=== PATIENT | female | born 1980 | race Caucasian/White ===

== ENCOUNTER 2024-12-23 21:58 | Inpatient (IN) | payer OTHER ==
[~2024-12-23] VITALS: Ht 165.1 cm; Wt 115.3 kg
[2024-12-23 22:27] LABS: MEAN PLATELET VOLUME 7.5 FL (7.4-10.4); RED CELL DISTRIBUTION WIDTH 12.2 % (11.5-14.5)
[2024-12-23 22:44] LABS: CREATININE 0.81 MG/DL (0.40-0.90); TOTAL CARBON DIOXIDE 31.7 MMOL/L (24-32); eCRCL 80 ML/MIN; eGFR 77 ML/MIN
--- NOTE | 2024-12-23 22:55 | Physician Documentation ---
History of Present Illness ~ Chief Complaint: Abdominal Pain w/vomiting Stated Complaint: ABD PAIN Time Seen by MD: 22:55 HPI Patient presents to the emergency room with epigastric pain onset 1 hour prior to arrival. History of ulcers. She reports compliance with her Protonix. Positive nausea and vomiting. No diarrhea no fevers. She is on Zepbound. Denies history of abdominal surgeries. Medication Reconciliation Allergies: Coded Allergies: No Known Allergies (Unverified , 12/23/24) Scheduled Pantoprazole Sodium (Protonix), 1 TAB PO DAILY, (Reported) Sertraline HCl (Sertraline HCl), 1 TAB PO DAILY, (Reported) Review of Systems ROS All review of systems negative except as per HPI Physical Exam Vital Signs: Temperature: 97.6, Heart Rate: 70, Respiratory Rate: 16, BP: 142/77, Pulse Oximetry: 98, Weight: 115.300 Oxygen Flow Rate: 0 Physical Exam General: Patient is awake, alert, oriented x4 in no acute distress Head: Normocephalic and atraumatic. Eyes: Conjunctival normal. EOMI. PERRL. ENT: Mucous membranes moist. Neck: Supple, trachea is midline. Chest: Clear to auscultation bilaterally without rales, rhonchi, or wheezes. There is no accessory muscle use or retractions. Cardiac: RRR without murmurs, gallops, or rubs. Abd: Soft, nondistended, epigastric tenderness to palpation without peritonitis Progress Results/Orders Results/Orders Orders - LG GRUBER MD Abdomen,Single View(Kub) (12/23/24 23:47) Ultrasound Of Abdomen (12/24/24 00:00) Page Hospitalist (12/24/24 00:41) Fill Out Med Reconciliation (12/24/24 00:41) Completed Orders - LG GRUBER MD Hcg, Ur Ql (12/23/24 22:09) Cbc/Diff (12/23/24 22:09) Lipase (12/23/24 22:09) CMP (12/23/24 22:09) Ondansetron Disint. Tablet (Zofran Odt T (12/23/24 23:00) Mag & Alum Hydrox/Simeth Susp (Maalox Or (12/23/24 23:00) Lidocaine 2% Viscous (Xylocaine 2% Visco (12/23/24 23:00) Abdomen,Single View(Kub) (12/23/24 23:47) Ua W/Microscopic, Cult If Ind (12/23/24 22:09) Prochlorperazine Tablet (Compazine Table (12/24/24 00:05) Ultrasound Of Abdomen (12/24/24 00:00) Morphine 4mg/Ml Inj. (Morphine Inj.) (12/24/24 00:35) Medications Received in ER Medications (Trade) Dose Ordered Sig/Yash Route PRN Reason Start Time Stop Time Status Last Admin Dose Admin (Zofran ODT tablet) 8 mg ONCE ONCE PO 12/23/24 23:00 12/23/24 23:01 DC 12/23/24 23:09 8 MG (Maalox oral suspension) 30 ml ONCE ONCE PO 12/23/24 23:00 12/23/24 23:01 DC 12/23/24 23:08 30 ML (Xylocaine 2% Viscous 15mL cup) 15 ml ONCE ONCE MM 12/23/24 23:00 12/23/24 23:01 DC 12/23/24 23:08 15 ML (Compazine tablet) 10 mg ONCE ONCE PO 12/24/24 00:05 12/24/24 00:06 DC 12/24/24 00:09 10 MG (morphine inj.) 4 mg ONCE ONCE IV 12/24/24 00:35 12/24/24 00:36 DC 12/24/24 00:49 4 MG Vital Signs 12/23/24 12/23/24 12/24/24 12/24/24 22:06 23:13 00:49 01:01 Temp 97.6 Pulse 70 68 Resp 16 16 26 16 B/P (MAP) 142/77 119/80 (93) Pulse Ox 98 95 O2 Flow Rate 0 0 Laboratory Tests Test 12/23/24 22:09 12/23/24 22:17 Urine Specimen Description Cln catch midstream Urine Color Yellow Urine Clarity Slightly cloudy Urine pH 6.0 Urine Specific [place] 1.025 Urine Protein Negative Urine Glucose (UA) Negative Urine Ketones Negative Urine Occult Blood Negative Urine Nitrite Negative Urine Bilirubin Negative Urine Urobilinogen 0.2 Urine Leukocyte Esterase Negative Urine RBC 3-10 Urine WBC 0-4 Urine Squamous Epithelial Cells Many Urine Amorphous Urates 1+ Urine Bacteria Few Urine Mucus Few Urine Culture Indicated Not ind Volume Urine Centrifuged 10 ml Urine HCG, Qualitative Negative Urine Comment White Blood Count 8.3 Red Blood Count 4.61 Hemoglobin 13.6 Hematocrit 39.3 Mean Corpuscular Volume 85.4 Mean Corpuscular Hemoglobin 29.6 Mean Corpuscular Hemoglobin Concent 34.7 Red Cell Distribution Width 12.2 Platelet Count 268 Mean Platelet Volume 7.5 Neutrophils (%) (Auto) 46.3 Lymphocytes (%) (Auto) 45.2 Monocytes (%) (Auto) 6.4 Eosinophils (%) (Auto) 1.4 Basophils (%) (Auto) 0.7 Neutrophils # (Auto) 3.8 Lymphocytes # (Auto) 3.7 Monocytes # (Auto) 0.5 Eosinophils # (Auto) 0.1 Basophils # (Auto) 0.1 CBC Comment Sodium Level 141 Potassium Level 3.9 Chloride Level 104 Carbon Dioxide Level 31.7 Anion Gap 5 L Blood Urea Nitrogen 18 Creatinine 0.81 Estimated GFR/1.73 m2 77 BUN/Creatinine Ratio 22.2 H Glucose Level 108 H Calcium Level 8.9 Total Bilirubin 0.2 Aspartate Amino Transf (AST/SGOT) 20 Alanine Aminotransferase (ALT/SGPT) 23 Alkaline Phosphatase 65 Total Protein 7.5 Albumin 3.4 Globulin 4.1 Albumin/Globulin Ratio 0.8 L Lipase 54 Chemistry Comments Medical Decision Making Findings Patient presents to the emergency room with epigastric pain as per HPI. Differentials include but were not limited to gastritis cholecystitis pancreatitis diverticulitis small-bowel obstruction therefore emergent labs ordered. Ultrasound is positive for gallbladder stone stuck in the neck of the gallbladder I do believe this is causing her pain. Patient was significant pain in his requiring IV pain medications. She is not a good candidate for outpatient management. We will admit for definitive management. Departure Admitted to Inpatient Unit: yes, to hospitalist Impression: Primary Impression: Cholelithiasis Additional Impression: Intractable pain Condition: Guarded Referrals: NO PRIMARY CARE PROVIDER (PCP) Signature Scribe Signature: No scribe Attestation: The note accurately reflects work and decisions made by me.Lg Gruber MD 12/24/24 01:14 LG GRUBER MD Dec 23, 2024 22:55
[2024-12-23] MEDS: LIDOcaine 2% Viscous 15ml cup MM ONE (23:08)
[2024-12-23] MEDS: mag hydrox/Alum hydrox/simeth 30ml oral suspension PO ONE (23:08)
[2024-12-23] MEDS: ondansetron 4mg rapidly disintigrating tab PO ONE (23:09)
[2024-12-23 23:39] LABS: LEUKOCYTE ESTERASE ,URINE NEGATIVE (Neg); NITRITES, URINE NEGATIVE (Neg); OCCULT BLOOD,URINE NEGATIVE (Neg)
[2024-12-23 23:45] LABS: URINE HCG NEGATIVE (NEG)
[2024-12-23 23:49] LABS: UA COLLECTION TYPE CLN CATCH MIDSTREAM
[2024-12-23 23:50] LABS: AMORPHOUS URATES 1+; MUCUS STRANDS FEW /LPF (Neg); SQUAMOUS EPITHELIAL CELL,UR MANY /LPF (FEW)
[2024-12-24] VITALS (17 sets, daily range): BP systolic 97–143; BP diastolic 57–94; PULSE 60–90; RESP 14–24; TEMP 97.7–99; O2SAT 93–100
--- NOTE | 2024-12-24 00:09 | RADIOLOGY REPORT ---
Exam: DI ABDOMEN,SINGLE VIEW(KUB) Indication: suspected obstruction Comparison: None Technique: 3 radiographic views of the abdomen. FINDINGS/IMPRESSION: Suboptimal assessment due to overlying soft tissue attenuation. Nonspecific bowel gas pattern. No free air. The osseous structures are unremarkable.
[2024-12-24] MEDS: morphine 4 MG/ML inj SYRINge IV ONE ×2 (00:49→01:36)
--- NOTE | 2024-12-24 01:01 | RADIOLOGY REPORT ---
EXAM: US ULTRASOUND OF ABDOMEN HISTORY: suspected cholecystitis COMPARISON: DI ABDOMEN,SINGLE VIEW(KUB) on DOS: 12/23/24 TECHNIQUE: Real-time grayscale and color flow images of the abdomen were obtained. FINDINGS: Suboptimal evaluation. GALLBLADDER: There is cholelithiasis. No gallbladder wall edema or pericholecystic fluid. Gallbladder wall thickness is 2 mm. A sonographic henriquez's sign is present. COMMON BILE DUCT: 5 mm in caliber. OTHER: None. IMPRESSION: 1. Cholelithiasis with a sonographic henriquez sign. No gallbladder wall thickening. Acute cholecystitis cannot be excluded in the appropriate clinical setting.
[2024-12-24] MEDS ORDERED: PANT20TA18 PO (01:08)
[2024-12-24] MEDS ORDERED: SERT-434 PO (01:08)
[2024-12-24] MEDS ORDERED: piperacillin/tazo 4.5gm/100ml 100 ML IV SCH (01:15)
[2024-12-24] MEDS ORDERED: potassium Cl 20 mEq SR tablet PO PRN ×2 (01:30)
[2024-12-24] MEDS ORDERED: magnesium sulf-water 4G/100mL 100 ML IV PRN (01:30)
[2024-12-24] MEDS ORDERED: potassium Cl 40MEQ/1/2NS 520ml 520 ML IV PRN (01:30)
[2024-12-24] MEDS ORDERED: magnesium hydroxide 30ml (MOM) UD suspension PO PRN (01:30)
[2024-12-24] MEDS ORDERED: ondansetron/PF 4mg/2ml inj IV PRN ×2 (01:30→20:00)
[2024-12-24] MEDS ORDERED: HYDROmorphone inj. 0.5 MG/0.5 ML DISP.SYRIN IV PRN ×2 (01:30→20:15)
[2024-12-24] MEDS ORDERED: magnesium sulf-water 2g/50mL 50 ML IV PRN (01:30)
[2024-12-24] MEDS ORDERED: magnesium Cl slow-release 64mg tablet PO PRN (01:30)
[2024-12-24] MEDS: metoclopramide 5 mg/ml inj IV ONE (01:45)
[2024-12-24] MEDS: piperacillin/tazobactam inj. 3.375 GM in NS 50ml IV ONE (01:45)
[2024-12-24] MEDS: normal saline 1000ml 1,000 ML IV SCH (01:45)
--- NOTE | 2024-12-24 01:54 | HISTORY AND PHYSICAL-Residence ---
History & Physical Providers to CC Resident Creating Document: AMINATAUTEROBSON ~ History of Present Illness Reason for Admit\Complaint: Abdominal pain History of Present Illness 44 years old female with history of obesity on Zepbound, and peptic ulcer presented to the ED due to severe abdominal pain. Pain located on the upper abdomen, and started around 8:00 p.m. at night 2 hours after she ate lunch. Severity of the pain 10/10, non positional, not radiated, exacerbated by deep breathing. Patient did not eat anything after pain and does not know any food relation. She also reported 2 times nausea/vomiting containing food nonbloody. Denied any constipation, diarrhea any changing in urinary habits. Denied any sick content. She denied any similar symptoms before, she reported I do not remember abdominal pain at this severity by probably I have sometimes abdominal pain. Allergies: Coded Allergies: No Known Allergies (Unverified , 12/23/24) Home Medications Home Medications Active Reported Sertraline HCl 100 Mg Tablet 1 Tab PO DAILY 30 Days Protonix (Pantoprazole Sodium) 20 Mg Tablet.dr 1 Tab PO DAILY 30 Days Past Medical History Past Medical History Peptic ulcer in 2009 Depression Obesity on Zepbound(compound form) for more than one year Past Surgical History Surgical History Comment Tonsillectomy Family History Family History: FH: gallbladder disease (Father, gangrene gallbladder) Past Social History Smoking: Cigarettes Alcohol Use: Occasionally (Last drink was last week) Drug Use: Marijuana, Cocaine (She used to smoke cocaine last one was one year ago), Other Lives with: Family ROS ROS Constitutional: No fever, dizziness, weakness. no change in appetite/weight HEENT: No blurring of the vision, No sore throat, epistaxis, tinnitus Cardiovascular: no chest pain/discomfort, palpitations, no syncope. No pedal edema Respiratory: No sob, cough,, hemoptysis Gastrointestinal: As HPI Genitourinary: No frquency, urgency, incontinence, nocturia. No dysuria, hematuria Musculoskeletal: No arthralgia, myalgia Endocrine: No polydipsia, polyuria. No heat or cold intolerance Neurologic: No headache, vertigo. No weakness, no numbness or tingling of extremities Psychiatric: No hallucinations/delusions, no anhedonia, no suicidal ideation\ Hematologic: No bleeding or bruises Exam Vitals: Vital Signs Date Time Temp Pulse Resp B/P (MAP) Pulse Ox O2 Delivery O2 Flow Rate FiO2 12/24/24 01:36 20 12/24/24 01:01 68 119/80 (93) 95 0 12/23/24 22:06 97.6 General: General: Awake and Alert, mild distress. HEENT: Conjunctiva pink, Sclera clear, Mucus Membranes dry Neck: Supple without masses and tenderness. Resp: Lungs clear to auscultation bilaterally. Heart: Regular Rate and rhythm, normal S1 and S2 Abdomen: Soft, nondistended, positive Collazo sign, tenderness on right upper quadrant Extremities: No cyanosis,clubbing or edema. Skin: Warm and Dry. Neurological: Speech is clear, alert, and oriented x 4, no gross neurological deficits Diagnostic Data Last Recorded Lab Results: 12/23/24221612/23/242216 Diagnostic Data: Laboratory Tests Test 12/23/24 22:17 Coagulation Comments Advance Care Planning Advanced Care plannin - 30 Minutes Additional Plan 44 years old female with history of obesity, depression, presented to the ED due to abdominal pain Abdominal pain Cholelithiasis Suspected acute cholecystitis no fever Normal lipase, normal WBC, normal liver function normal alkaline phosphatase and normal bilirubin, pending lactic acid Suspected acute cholecystitis History of possible peptic ulcer in 2009, Abdominal x-ray showed:Suboptimal assessment due to overlying soft tissue attenuation. Nonspecific bowel gas pattern. No free air. The osseous structures are unremarkable. Ultrasound showed: Cholelithiasis with a sonographic collazo sign. No gallbladder wall thickening. Acute cholecystitis cannot be excluded in the appropriate clinical setting. Received Zosyn in the ED We will continue IV fluid will order HIDA scan Consulted surgery Dr Braxton Obesity On Zepbound we will hold the medication for now Current smoker, cigarettes and marijuana Denied any methamphetamine or cocaine use recently Urine tox is pending Patient was consulted regarding the adverse effect of his smoking including cardiovascular disease cancer respiratory disease and other patient potential harms Depression Continue home medication after reconciliation Code Status: Full DVT prophylaxis: SCDs Analgesia/sedation: Dilaudid Line/tube: Peripheral GI prophylaxis: Protonix Nutrition: NPO Prognosis: Guarded Disposition: Continue monitoring patient in ortho floor with telemetry Ute Muniz MD Internal Medicine Resident Date of Service: Dec 24, 2024 Billing Provider: BRAUILO TORRES MD, ELAHE, RES Dec 24, 2024 01:54
[2024-12-24 01:59] LABS: APTT 25 SECONDS (22-32); INR 1.0 INR
[2024-12-24 02:20] LABS: CHOL/HDL RATIO 6.4 (0.00-4.99); LDL CHOLESTEROL 144 MG/DL (50-100)
[2024-12-24] MEDS: normal saline 1000ml 1,000 ML IVB ONE (02:23)
[2024-12-24 02:52] LABS: URINE AMPHETAMINE SCREEN NEGATIVE (Neg); URINE BARBITUATE SCREEN NEGATIVE (Neg); URINE BENZODIAZEPINES SCREEN NEGATIVE (Neg); URINE CANNABINOID SCREEN NEGATIVE (Neg); URINE COCAINE SCREEN POSITIVE (Neg); URINE METHADONE SCREEN NEGATIVE (Neg); URINE OPIATE SCREEN NEGATIVE (Neg); URINE PHENCYCLIDINE SCREEN NEGATIVE (Neg)
[2024-12-24] MEDS: piperacillin/tazobactam inj. 3.375 GM in NS 50ml IV SCH (06:15)
--- NOTE | 2024-12-24 06:46 | ELECTROCARDIOGRAPH REPORT ---
[facility] Test Date: 2024-12-24 Test Time: 02:23:12 Pat Name: ANA CRAWFORD Department: EMERGENCY ROOM Room: ORTHO [address] Gender: F Senior Bi Architect: : [id number] Requested By: UTE COATES Order Number: [id number] Reading MD: Dr. Gallo Tena Measurements Intervals [place] Rate: 58 P: 49 RI: 161 QRS: 33 QRSD: 97 T: 29 QT: 436 QTc: 429 Interpretive Statements Sinus bradycardia Low voltage, precordial leads Electronically Signed On 12-25-2024 21:42:[address] Gallo Tena Please click the below link to view image of tracing.
[2024-12-24] MEDS: docusate sod 100mg capsule PO SCH (08:00)
[2024-12-24] MEDS: K and/or MAG REPLACEMENT MC SCH (08:00)
[2024-12-24] MEDS: FLU VACC TS2025-26(6MOS UP)/PF (FLULAVAL) 45 MCG/0.5 ML SYRINGE IMVAC ONE (12:20)
--- NOTE | 2024-12-24 13:06 | PROGRESS NOTE ---
Progress Note ID Providers to CC ~ Progress Note Progress Note: pt seen and examined-ct pending DONOVAN LYONS MD Dec 24, 2024 13:06
--- NOTE | 2024-12-24 13:42 | PROGRESS NOTE ---
Daily Progress Note Providers to CC ~ Antibiotic Timeout Antibiotic Ordered?: Yes Subjective No new complaints. Continues to have abdominal pain Objective Vital Signs Date Time Temp Pulse Resp B/P (MAP) Pulse Ox O2 Delivery O2 Flow Rate FiO2 12/24/24 10:00 97.8 63 14 100/58 (72) 95 Room Air 12/24/24 02:35 0 Result Diagram: 12/23/24 2217 12/24/24 1017 Awake alert cooperative in no acute distress HEENT normocephalic atraumatic extraocular movements are intact Neck supple, no JVD Chest: Clear to auscultation, no wheezes crackles rhonchi Heart: Regular rate rhythm, no murmur or gallop rub Abdomen is soft, tender in the right upper quadrant Extremities no cyanosis clubbing or edema Neuro exam nonfocal. Coagulation Studies Laboratory Tests Test 12/23/24 22:17 Prothrombin Time 10.1 SECONDS (9.0-12.0) INR International Normalized Ratio 1.0 INR Activated Partial Thromboplast Time 25 SECONDS (22-32) Coagulation Comments Other Results Medications reviewed Problem\Assessment\Plan 44 years old female with a history of obesity, peptic ulcer disease, presented to the ER for evaluation of severe abdominal pain. 1. Acute cholecystitis: CT abdomen is pending. Keep NPO. Continue IV fluids. Dr. Murillo has been consulted. 2. GERD continue Protonix 3. Depression continue zoloft. 4. Code status full code. Date of Service: Dec 24, 2024 Billing Provider: CHRISTIE AMIN MD Common Visit Codes: [id number] INP/OBS CARE(HIGH) CHRISTIE AMIN MD Dec 24, 2024 13:42
[2024-12-24] MEDS: IOHEXOL 12MG/ML oral solution 500 ML BOTTLE PO ONE (15:44)
[2024-12-24] MEDS ORDERED: iohexol 300mg/ml 100ml inj. ONE (16:24)
--- NOTE | 2024-12-24 17:06 | RADIOLOGY REPORT ---
Indication: pain Technique: CT axial images of the abdomen and pelvis are obtained with intravenous contrast. Coronal and sagittal reformats were obtained. Radiation Dose Information: CTDI volume is 36.4 mGy. Dose-length product is 1910 mGy*cm Comparison: 12/24/2024 FINDINGS: Lung bases demonstrate no pleural effusion. Adrenal glands, spleen, pancreas unremarkable in shape. Cholelithiasis. Pericholecystic edema / stranding. No enhancing hepatic lesion. Kidneys demonstrate no hydronephrosis. The stomach is partially distended. Small bowel loops are normal in caliber. Moderate volume stool in the colon. Normal appendix. Abdominal aorta normal in caliber. Bladder partially distended. No free pelvic fluid. No inguinal lymphadenopathy. No aggressive osseous process. Moderate lumbar degenerative disc disease L5-S1. IMPRESSION: Cholelithiasis, pericholecystic edema and stranding consistent with cholecystitis. Recommend surgical consultation HIDA scan. Other findings as described.
[2024-12-24] MEDS ORDERED: BUPIVAcaine/PF 2.5mg/ml (0.25%) 10ml vial ONE (18:01)
[2024-12-24] MEDS ORDERED: vancomycin 1,000mg inj ONE (18:06)
--- NOTE | 2024-12-24 18:13 | PROGRESS NOTE ---
Progress Note ID Providers to CC ~ Progress Note Progress Note: ct consistent with cholecystitis-pt needs robo ronald-possible open-discussed procedure including risks/benefits/alternatives DONOVAN LYONS MD Dec 24, 2024 18:13
[2024-12-24] MEDS ORDERED: labetalol 20mg/4ml (5mg/ml) syringe IV PRN (18:25)
[2024-12-24] MEDS ORDERED: HYDROmorphone/PF 0.2 MG/ML SYRINGE IV PRN (18:25)
[2024-12-24] MEDS ORDERED: hydrALAZINE 20mg/ml inj. IV PRN (18:25)
[2024-12-24] MEDS ORDERED: morphine 4 MG/ML inj SYRINge IV PRN ×2 (18:25)
[2024-12-24] MEDS ORDERED: midazolam 1 mg/ML 2ml injection ONE (18:32)
[2024-12-24] MEDS ORDERED: dexamethasone sod phosphate 4mg/ml inj. ONE (19:01)
[2024-12-24] MEDS ORDERED: LIDOcaine 2% (20mg/ml) 5ml vial ONE (19:01)
[2024-12-24] MEDS ORDERED: rocuronium 10mg/ml inj IV ONE (19:01)
[2024-12-24] MEDS ORDERED: fentaNYL /PF 50mcg/ml 5ml ampule ONE (19:01)
[2024-12-24] MEDS ORDERED: propofol inj 20 ML IV ONE (19:01)
--- NOTE | 2024-12-24 19:55 | OPERATIVE REPORT ---
Operative Report Providers to CC ~ Date of Procedure: Dec 24, 2024 Pre-Operative Diagnosis: cholelithiasis/cholecystitis Post-Operative Diagnosis SAME as PRE-Op Procedure Performed bianca cardenas Surgeon: epi Application Support Consultant matt Anesthesiologist: Lashell Bourne Type of Anesthesia: General Findings: cholecystitis Estimated Blood Loss: min Specimen Removed: DONOVAN Alejo MD Dec 24, 2024 19:55
[2024-12-24] MEDS ORDERED: glycopyrrolate 0.2mg/ml inj ONE (20:01)
[2024-12-24] MEDS ORDERED: morphine 4 MG/ML inj SYRINge ONE (20:01)
[2024-12-24] MEDS: HYDROmorphone/PF 0.2 MG/ML SYRINGE IV PRN (20:09)
[2024-12-24] MEDS: acetaminophen 1,000mg/100ml IV 100 ML IV PRN (20:09)
[2024-12-24] MEDS: ondansetron/PF 4mg/2ml inj IV PRN (20:12)
[2024-12-25] VITALS: BP 135/88; PULSE 101; O2SAT 94
[2024-12-25] MEDS: HYDROmorphone/PF 0.2 MG/ML SYRINGE IV PRN (00:39)
--- NOTE | 2024-12-25 01:16 | OPERATIVE REPORT ---
DATE OF SURGERY: 12/24/2024 DICTATING PHYSICIAN: Chun Braxton MD PREOPERATIVE DIAGNOSES: Cholelithiasis, cholecystitis. POSTOPERATIVE DIAGNOSES: Cholelithiasis, cholecystitis. PROCEDURE PERFORMED: Robotic cholecystectomy. SURGEON: Chun Braxton MD BUSINESS CONTINUITY MANAGER: None. ANESTHESIA: General. DRAINS: None. INDICATIONS FOR OPERATION: A 44-year-old female with recurrent upper abdominal discomfort, found to have cholelithiasis and cholecystitis. INTRAOPERATIVE FINDINGS: Cholecystitis. DESCRIPTION OF PROCEDURE: The patient was placed supine on the operating table. After induction of general anesthesia and placement of endotracheal tube, the abdomen was prepped and draped. A subumbilical incision was then made and Lior port placed using open technique and pneumoperitoneum was begun by insufflation of CO2. Additional ports were then placed in the lower abdomen under laparoscopic vision. After port placement, the robot was brought to the field, camera port docked, camera placed, camera targeted. Additional ports were then docked and instruments placed. The abdomen was then explored. The gallbladder was inflamed. The gallbladder fundus was grasped and retracted cephalad. Cystic duct was identified, isolated, clipped and divided as was the cystic artery after the adhesions were taken down. The gallbladder was then mobilized off the gallbladder fossa. Once the gallbladder was mobilized, hemostasis was obtained. Robotic instruments were removed and the robot was undocked from the field. The gallbladder was placed in an Endobag using a laparoscope. The abdomen was copiously irrigated with large amount of antibiotic-containing solution. The gallbladder was then removed using the Endobag. Ports were removed under laparoscopic vision without active bleeding. The final port and camera were withdrawn and the pneumoperitoneum was evacuated. Wounds were closed in layers. Skin was closed with subcuticular stitch and dressing was applied. The patient was transferred to recovery in stable condition. Chun Braxton MD TID: [id number] RECEIPT: [id number] SOTERO/FIORELLA
[2024-12-25 01:56] VITALS: BP 144/99; PULSE 94; RESP 16; TEMP 97.7; O2SAT 93
[2024-12-25] MEDS: HYDROcodone/acetaminophen 5mg/325mg tablet PO PRN (02:02)
[2024-12-25] MEDS: normal saline 1000ml 1,000 ML IV SCH (04:13)
[2024-12-25 05:47] LABS: MEAN PLATELET VOLUME 7.9 FL (7.4-10.4); RED CELL DISTRIBUTION WIDTH 12.3 % (11.5-14.5)
[2024-12-25 06:00] VITALS: BP 128/83; PULSE 95; RESP 14; TEMP 98; O2SAT 93
[2024-12-25 06:04] LABS: CREATININE 0.81 MG/DL (0.40-0.90); TOTAL CARBON DIOXIDE 27.3 MMOL/L (24-32); eCRCL 80 ML/MIN; eGFR 77 ML/MIN
[2024-12-25] MEDS: diatr meglu/diatrizoate 30ml oral sol.-(3 dose) bottle PO SCH (06:37)
[2024-12-25] MEDS: ringers solution, lacted 1,000 ML IV SCH (06:39)
[2024-12-25 08:58] VITALS: RESP 16; O2SAT 95
[2024-12-25 10:00] VITALS: BP 129/76; PULSE 83; RESP 16; TEMP 98.3; O2SAT 92
--- NOTE | 2024-12-25 10:19 | CONSULTATION ---
DATE OF CONSULTATION: 12/24/2024 DICTATING PHYSICIAN: Chun Braxton MD REASON FOR CONSULTATION: Evaluation of abdominal pain. HISTORY OF PRESENT ILLNESS: The patient is a 44-year-old female with a history of obesity, peptic ulcer disease, and depression who presents with abdominal discomfort. Ultrasound revealed cholelithiasis. Surgical consultation is now requested. On further questioning, the patient had severe upper abdominal discomfort. No previous episodes. Pain different from her previous peptic ulcer disease 10 years ago. Pain improved at the present time. No complaints of blood per rectum. PAST MEDICAL HISTORY: Peptic ulcer disease, depression and obesity. PAST SURGICAL HISTORY: Tonsillectomy. HOME MEDICATIONS: Sertraline, Protonix, Zepbound. ALLERGIES: None. SOCIAL HISTORY: Ongoing tobacco use. REVIEW OF SYSTEMS: Unremarkable. PHYSICAL EXAMINATION: GENERAL: A well-nourished female in minimal distress. VITAL SIGNS: Unremarkable. HEART: Regular rhythm. LUNGS: Clear to auscultation. ABDOMEN: Shows moderate abdominal discomfort. No christi peritonitis. No masses. EXTREMITIES: pedal edema. LABORATORY DATA: Include WBC of 8, hematocrit 39, platelet count 268. Chemistries show essentially normal LFTs. Cholesterol is 297. LDL is 144. INR is 1 and PTT is 25. IMAGING STUDIES: Ultrasound reveals cholelithiasis. CT abdomen reveals cholelithiasis and cholecystitis. IMPRESSION: * Cholelithiasis and cholecystitis. * History of peptic ulcer disease. * History of obesity. RECOMMENDATIONS: Robotic cholecystectomy, possible open. Chun Braxton MD TID: [id number] RECEIPT: [id number] KB/SHELBIE
--- NOTE | 2024-12-25 12:44 | PROGRESS NOTE ---
Progress Note ID Providers to CC ~ Progress Note Progress Note: doing well/ok to dc this afternoon DONOVAN LYONS MD Dec 25, 2024 12:44
[2024-12-25 13:58] VITALS: RESP 18
--- NOTE | 2024-12-25 15:13 | DISCHARGE SUMMARY ---
Discharge Summary Providers to CC ~ Discharge Summary Admission Diagnosis: cholelithiasis/cholecystitis Admission Diagnosis Comment: ABDOMINAL PAIN Hospital Course DATE OF ADMISSION: 12/24/2024 DATE OF DISCHARGE: 12/25/2024 Discharge Diagnosis\Comment: Acute cholecystitis Operations\Procedures: Robotic cholecystectomy Consultants: DONOVAN LYONS MD Complications: None Condition on DC: Stable Continued Medications: Pantoprazole Sodium (Protonix) 20 Mg Tablet.dr 1 TAB PO DAILY for 30 Days, #30 TAB 0 Refills Sertraline HCl (Sertraline HCl) 100 Mg Tablet 1 TAB PO DAILY for 30 Days, #30 TAB 0 Refills Discharge Summary: Reason for admission: 44 years old female with a history of obesity, peptic ulcer disease, presented to the ER for evaluation of abdominal pain Please refer to admission H&P for more details. Hospital course: Patient was admitted on the monitored floor under hospital course as follows. # acute cholecystitis: Evaluated by surgery and patient underwent robotic cholecystectomy by Dr. Murillo. Patient has done well postoperatively and has been cleared for discharge by surgery as per the attending RN. #history of GERD: Continued on Protonix #depression: Continued on Zoloft Discharge exam: Examined the patient on the day of discharge. Awake cooperative in no acute distress HEENT normocephalic atraumatic extraocular movements are intact Neck supple, no JVD Chest: Clear to auscultation, no wheezes crackles rhonchi Heart: Regular rate rhythm, no murmur or gallop rub Abdomen is soft, no organomegaly , tender as expected. Extremities no cyanosis clubbing or edema Neuro exam is nonfocal Disposition home *Problems/Diagnosis: (1) Cholelithiasis Status: Acute (2) Intractable pain Status: Acute Total Time Spent on D/C: Up to 30 Minutes Date of Service: Dec 25, 2024 Billing Provider: CHRISTIE AMIN MD Common Visit Codes: [id number]-EWH/OBS DISCH DAY <30MIN CHRISTIE AMIN MD Dec 25, 2024 15:13
--- NOTE | 2024-12-26 12:04 | PATHOLOGY REPORT ---
[facility] [address] [place] [address] SURGICAL PATHOLOGY REPORT CaseNumber: [id number] Surgeon:Chun Braxton M.D. CLINICAL INFORMATION CLINICAL INFORMATION: Abdominal pain, cholelithiasis, pos cholecystitis. DIAGNOSIS DIAGNOSIS: GALLBLADDER, ROBOTIC ASSISTED LAPAROSCOPIC SUZAN - ACUTE CHOLECYSTITIS WITH CHOLELITHIASIS - NO DYSPLASIA OR MALIGNANCY MICROSCOPIC DESCRIPTION MICROSCOPIC DESCRIPTION: Performed. GROSS DESCRIPTION GROSS DESCRIPTION: Received in a container of formalin labeled with the patient's name, number, and "gallbladder" is a disrupted gallbladder which measures 7.5 cm long by 2.5 cm in diameter. The serosa is somewhat roughened and purple-butler. The surgical bed is unremarkable. Sectioning reveals a moderate amount of viscous dark green bile and a 4 cm aggregate of irregularly shaped yellow stones which measure up to 0.5 cm. The mucosa is red and granular with scattered yellow flecks present. A discrete mass lesion is not identified. The wall of the gallbladder measures up to 0.9 cm thick. It Technical Specialist sections of the neck and wall of the gallbladder are submitted as A1.The time at which the specimen was removed was 1940. The time at which the specimen was placed in formalin was 1942. ([facility]) Electronically signed by: Issa Schmitz M.D. 12/26/2024 9:08:00 AM
== END 2024-12-25 16:05 | disposition home or self-care (01) | DRG 418 ==
LOC: ER 21:59 → ED HOLD 12-24 01:37 → EDBEDREQ 12-24 02:19 → ORTHO 4S 12-24 02:40
PROVIDERS: ADMIT Internal Medicine Pulmonary Disease; ATTEND Internal Medicine Pulmonary Disease
PROC: 8E0W4CZ Robotic Assisted Procedure of Trunk Region, Percutaneous Endoscopic Approach (ICD-10-PCS; 2024-12-24)
PROC: 0FT44ZZ Resection of Gallbladder, Percutaneous Endoscopic Approach (ICD-10-PCS; principal; 2024-12-24 18:30)
DX: K80.00 Calculus of gallbladder with acute cholecystitis without obstruction (principal); Z68.41 Body mass index [BMI] 40.0-44.9, adult; E66.9 Obesity, unspecified; F32.A Depression, unspecified; K21.9 Gastro-esophageal reflux disease without esophagitis; Z72.0 Tobacco use; Z87.11 Personal history of peptic ulcer disease
CPT/HCPCS: Z7506; Z7508; 36415; 74018; 74177; 76700; 80053; 80061; 80305; 81001; 81025; 82948; 83605; 83690; 83735; 84132; 85025; 85610; 85730; 87081; 93005; A4215; A4615; A4618; A6253; A7000; G0378; J0131; J1100; J1171; J2003; J2250; J2270; J2405; J2470; J2543; J2704; J2710; J2765; J3010; J3373; J3490; J7030; J7120; Q0164; Q9967